=== PATIENT | female | born 1965 | race Caucasian/White ===

== ENCOUNTER 2024-04-09 09:41 | Emergency (ER) | payer OTHER, SELFPAY ==
[2024-04-09] VITALS (23 sets, daily range): BP systolic 101–149; BP diastolic 55–130; PULSE 63–91; RESP 12–20; TEMP 36.7–36.8; O2SAT 96–100
--- NOTE | ~2024-04-09 | XR_ITS ---
EXAMINATION: XR chest 2V DATE: 04/09/2024 10:22 INDICATION: Drug overdose. TECHNIQUE: Frontal and lateral views of the chest were obtained. COMPARISON: Chest view 09/06/2017 FINDINGS: There are lucencies in the lungs, consistent with emphysema. Calcified bilateral lung nodul es and calcified hilar and mediastinal lymph nodes are consistent with old granulomatous disease. No pleural effusion or pneumothorax. The heart size is normal. IMPRESSION: 1. Emphysema. Reviewed, dictated and finalized at location A. R NURSE IMPRESSION: 1. Emphysema.
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
--- NOTE | 2024-04-09 09:51 | ECG_ITS ---
Test Date: 2024-04-09 10:06:31 Measurements Intervals [place] Rate: 89 P: 67 VT: 181 QRS: 79 QRSD: 102 T: 69 QT: 318 QTc: 388 Interpretive Statements SINUS RHYTHM ST DEVIATION AND MODERATE T-WAVE ABNORMALITY IN ANTEROLATERAL LEADS, CONSIDER ISCHEMIA BASELINE ARTIFACT- I, II, III, AVR, AVL, AVF, V1-V2, V4-V5 ABNORMAL ECG No previous ECG available for comparison Electronically Signed On 04-09-2024 10:24:00 GASTROENTEROLOGY NURSE by Virgil Franks D.O.
[2024-04-09 10:18] LABS: Basophils Absolute Auto 0.04 K/mm3 (0.00-0.10); Basophils Percent Auto 0.4 % (0.0-1.0); Hematocrit 44.3 % (35.0-49.0); Hemoglobin 14.5 g/dL (12.0-15.0); Immature Granulocyte Absolute 0.02 K/mm3 (0.00-0.00); Immature Granulocyte Percent A 0.2 % (0.0-0.0); Lymphocytes Absolute Auto 2.53 K/mm3 (1.10-4.50); Lymphocytes Percent Auto 25.7 % (18.0-42.0); Mean Corpuscular HGB Conc 32.7 g/dL (32-36); Mean Corpuscular Hemoglobin 29.5 pg (27.0-31.0); Mean Platelet Volume 10.3 fl (9.2-11.8); Monocytes Absolute Auto 0.63 K/mm3 (0.10-0.90); Monocytes Percent Auto 6.4 % (2.0-11.0); Neutrophils Absolute Auto 6.41 K/mm3 (1.70-7.20); Neutrophils Percent Auto 65.3 % (50.0-70.0); Platelet Count Result 267 K/mm3 (150-420); Red Blood Count 4.92 M/mm3 (4.20-5.40); Red Cell Distribution Width 12.7 % (11.6-14.4); White Blood Count 9.8 K/mm3 (4.8-10.8)
[2024-04-09 10:19] LABS: Add Urine Microscopic? YES; Appearance Urine Clear (Clear); Bilirubin Urine Negative (Negative); Blood Urine Negative (Negative); Color Urine Yellow (Yellow); Glucose Urine UA Negative (Negative); Ketones Urine Negative (Negative); Leukocyte Esterase Ur 1+ LEU/UL (Negative); Nitrate Urine Positive (Negative); Protein Urine Negative (Negative); Specific Grav Ur 1.025 (1.010-1.020)
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
[2024-04-09 10:25] LABS: Amphetamine Screen Urine Positive (Negative); Barbiturate Screen Urine Negative (Negative); Benzodiazepines Screen Urine Positive (Negative); Cannabinoid Screen Urine Negative (Negative); Cocaine Screen Urine Negative (Negative); Methadone Screen Urine Negative (Negative); Opiate Screen Urine Negative (Negative); Phencyclidine Screen Urine Negative (Negative)
--- NOTE | 2024-04-09 10:50 | PC.NURSE ---
UPDATED PC WITH EKG FINDINGS. PT IS TO BE OBSERVED FOR 6 HOURS, IF PT REMAINS ASYMPTOMATIC, SHE WILL BE MEDICALLY CLEARED AT THAT TIME. WILL CONTINUE TO MONITOR. SODA PROVIDED. WILL CONTINUE TO MONITOR.
[2024-04-09 10:55] LABS: Bacteria Urine Trace /hpf; RBC Urine None seen /hpf (0-2); Squamous Epithelial Cell Urine Few /hpf (Few); WBC Urine 0-3 /hpf (0-3)
[2024-04-09 11:00] LABS: Alanine Aminotransferase 40 U/L (14-59); Albumin Level 3.7 g/dL (3.4-5.0); Alkaline Phosphatase 125 U/L (46-116); Anion Gap 12 mmol/L (4-12); Aspartate Amino Transferase 15 U/L (15-37); Bilirubin,Total 0.2 mg/dL (0.00-1.00); Blood Urea Nitrogen 33 mg/dL (7-18); Calcium 8.6 mg/dL (8.5-10.1); Carbon Dioxide 29 mmol/L (21-32); Chloride 100 mmol/L (98-108); Estimated CRCL calculation 48 ml/min; Estimated Glomerular Filt Rate 58; Glucose 100 mg/dL (70-99); Osmolality Calculated 299 mOsm/kg (285-295); Potassium 2.7 mmol/L (3.5-5.1); Salicylate 1.5 mg/dL (2.8-20.0); Sodium 141 mmol/L (136-145); Thyroid Stimulating Hormone 3.03 uIU/mL (0.36-3.74); Total Protein 6.9 g/dL (6.4-8.2)
[2024-04-09 11:01] LABS: Acetaminophen < 2 ug/mL (10-30); Ethanol < 3 mg/dL (0-6)
[2024-04-09] MEDS: NITROFURANTOIN MONOHYD MACROCR 100 MG CAP PO (11:41)
[2024-04-09] MEDS: POTASSIUM CHLORIDE 20 MEQ PACKET (FOR LIQUID) 40 MEQ PO ×2 (11:41→15:45)
--- NOTE | 2024-04-09 12:03 | PC.NURSE ---
DIFFICULTY ESTABLISHING IV SITE AT THIS TIME. PT HAS BEEN PROVIDED LUNCH AND IS EATING. WILL ATTEMPT AFTER LUNCH.
[2024-04-09] MEDS: KCL 40 MEQ/D5/0.9% SOD CHL 1,000 ML 100 ML IV CONT (12:43)
[2024-04-09] MEDS: SODIUM CHLORIDE 0.9% IV 1,000 ML 999 ML IV CONT (12:44)
--- NOTE | 2024-04-09 12:53 | PC.NURSE ---
PT HAS COMPLETED LUNCH, IV SITE HAS BEEN ESTABLISHED. VSS PER MONITOR. PT IS CALM AND COOPERATIVE, IVF INFUSING ORDERED WITHOUT DIFFICULTY. PT IS AWAITING MEDICAL CLEARANCE FOR EVALUATION. PT CONTINUES TO DENY SI OR HI. WILL CONTINUE TO MONITOR.
--- NOTE | 2024-04-09 13:21 | PC.NURSE ---
SPOKE WITH TEMO FROM PC AT THIS TIME FOR STATUS UPDATE. NO CHANGE IN TX AT THIS TIME. PT IS CURRENTLY RESTING ON STRETCHER IN EXAM ROOM, AROUSES TO VERBAL STIMULI. NAD NOTED. VSS. WILL CONTINUE TO MONITOR.
--- NOTE | 2024-04-09 13:32 | PC.NURSE ---
AND DAUGHTER CALL TO CHECK PT STATUS AT THIS TIME, ADVISED I WOULD HAVE HER RETURN THE CALLS WHEN SHE WAKES. REPORTS HE DOES NOT WANT TO SPEAK WITH HER, WAS JUST WANTING TO KNOW IF PT WAS GOING TO BE RELEASED. DAUGHTER IS KETAN PAL [phone].
--- NOTE | 2024-04-09 14:35 | PC.NURSE ---
PT IS RESTING ON STRETCHER, NAD NOTED. VSS PER MONITOR. IV MEDICATIONS INFUSING WITHOUT DIFFICULTY. PT IS TO HAVE POTASSIUM RECHECKED POST COMPLETION OF INFUSION. RECHECK WILL DETERMINE MEDICAL CLEARANCE. WILL CONTINUE TO MONITOR.
--- NOTE | 2024-04-09 15:32 | PC.NURSE ---
NO CHANGE IN PT STATUS. WILL CONTINUE TO MONITOR.
--- NOTE | 2024-04-09 15:41 | PC.NURSE ---
PT HAD PLACED HER HANDS BEHIND HER HEAD WHILE SLEEPING, PULLING OUT HER IV. ERP IS AWARE. PT AMBULATORY TO WITHOUT DIFFICULTY, IS CURRENTLY SPEAKING WITH FAMILY ON THE PHONE. WILL CONTINUE TO MONITOR.
[2024-04-09 17:36] LABS: Potassium 4.6 mmol/L (3.5-5.1)
--- NOTE | 2024-04-09 18:03 | PC.NURSE ---
PT HAS BEEN MEDICALLY CLEARED, AND YULIANA WITH [facility] NOTIFIED FOR NEED OF EVALUATION. PT IS RESTING ON STRETCHER AWAITING DINNER TRAY AT THIS TIME. VSS. WILL CONTINUE TO MONITOR.
--- NOTE | 2024-04-09 18:54 | PC.NURSE ---
[facility]RA CORNELL IS AT BEDSIDE AT THIS TIME.
--- NOTE | 2024-04-09 21:15 | PC.NURSE ---
ERP aware of pt's blood pressure. No new orders. Pt instructed to follow up with PCP.
--- NOTE | 2024-04-11 13:08 | PC.NURSE ---
FINAL URINE CULTURE RESULTS: MIXED GENITAL POOL NO CHANGE IN TX PER DR THORNE
== END 2024-04-09 21:15 | disposition home or self-care (01) ==
PROVIDERS: Emergency Provider Emergency Medicine
DX: F32.A Depression, unspecified (principal); R45.851 Suicidal ideations; E87.6 Hypokalemia; F17.200 Nicotine dependence, unspecified, uncomplicated
CPT/HCPCS: 36415; 71046; 80053; 80143; 80179; 80307; 81001; 82077; 84132; 84443; 85025; 87086; 87088; 93005; 96365; 96366; 99285; A9270; J3480; J7030

== ENCOUNTER 2024-06-09 07:12 | Emergency (ER) | payer MEDICARE, MEDICAID, SELFPAY ==
[2024-06-09] VITALS (11 sets, daily range): BP systolic 114–127; BP diastolic 55–75; PULSE 63–82; RESP 13–20; TEMP 36.8; O2SAT 95–100
--- NOTE | ~2024-06-09 | CT_ITS ---
CTA brain carotid Ordering provider: Jose Chambers DO History: . TIA, Headache/ facial numbness/ dizziness x1 week . Comparison: 10/09/2024 Technique: CT angiogram head and neck was performed following timed intravenous injection of contrast . Thin slice axial images and reformatted coronal images were obtained. Three dimensional reformatted images of the brain were also obtained using a [employer] workstation. Radiation reduction technique ut ilized.The dose-length product was 986.84 mGy-cm. 100 mL Omnipaque 350 was given IV. FINDINGS: HEAD: --ANTERIOR AND MIDDLE CEREBRAL ARTERIES AND BRANCHES: Normal caliber and contour. --INTERNAL CAROTID ARTERIES: Mild atheromatous disease but no significant stenosis. No occlusion. --BASILAR ARTERY AND BRANCHES: Normal caliber and contour. No atheromatous disease. --POSTERIOR CEREBRAL ARTERIES: Normal caliber and contour --POSTERIOR COMMUNICATING ARTERIES: Not visualized which is probably related to congenital absence or small size. --ANEURYSM: None visualized. --BRAIN: Please refer to report of CT head performed the same day. --BONES AND SUPERFICIAL SOFT TISSUES: Please refer to report of CT head performed the same day. --PARANASAL SINUSES AND MASTOIDS: Please refer to report of CT head done the same day. NECK: --RIGHT CERVICAL CAROTID SYSTEM: Normal caliber and contour. Percent stenosis per NASCET criteria is 0%. No carotid dissection. Otherwise, no significant atheromatous disease or stenosis of the cervica l carotid system. --LEFT CERVICAL CAROTID SYSTEM: Normal caliber and contour. Percent stenosis per NASCET criteria is 0%. No carotid dissection. Otherwise, no significant atheromatous disease or stenosis of the cervical carotid system. --VERTEBRAL ARTERIES: Normal caliber and contour. --VISUALIZED AORTIC ARCH AND BRANCHING VESSELS: Mild atheromatous disease but no significant stenosis . --SOFT TISSUES: Normal. --CERVICAL SPINE: Age appropriate degenerative changes. IMPRESSION: 1. Normal CTA head 2. CTA neck. Percent stenosis per NASCET criteria is 0%. Reviewed, dictated and finalized at location A.
--- NOTE | ~2024-06-09 | CT_ITS ---
CT brain wo con Ordering provider: Jose Chambers DO History: 59 years Female with . facial numbness/ headache/ dizziness/ difficulty speaking . Comparison: None. Technique: CT of the head without contrast. Radiation reduction technique utilized.The dose-length pr oduct was 605.33 mGy-cm. FINDINGS: BRAIN PARENCHYMA AND CSF SPACES: Mild leukoaraiosis and diffuse cortical atrophy. Mild atheromatous d isease. No midline shift, mass effect or hemorrhage. The brain parenchyma and CSF spaces are otherwi se normal. VISUALIZED PARANASAL SINUSES: Bilateral ethmoid sinus disease. Otherwise, Well aerated. MASTOIDS: Well aerated. BONES: The bones appear intact. SOFT TISSUES: Visualized nasopharynx is normal. Superficial soft tissues are normal. IMPRESSION: No acute intracranial findings. Reviewed, dictated and finalized at location A.
--- NOTE | 2024-06-09 07:14 | ECG_ITS ---
Test Date: 2024-06-09 07:20:59 Measurements Intervals [place] Rate: 76 P: 66 AL: 174 QRS: 70 QRSD: 98 T: 52 QT: 405 QTc: 455 Interpretive Statements SINUS RHYTHM BORDERLINE ST ABNORMALITY- ANTEROLATERAL LEADS BASELINE ARTIFACT- I, II, III, AVR, AVF, V1 BORDERLINE ECG Compared to ECG 04/09/2024 10:06:31 POSSIBLE ISCHEMIA NO LONGER PRESENT Electronically Signed On 06-09-2024 07:48:23 CDT by Virgil Franks D.O.
--- NOTE | 2024-06-09 07:17 | ED_ITS ---
HPI - General Adult General Chief complaint: Chest Pain Stated complaint: chest pain Time Seen by Provider: 06/09/24 07:13 History of Present Illness HPI narrative: Sharona is a 59F with a PMH of emphysema, seizures, depression and SI that presented to the ED with facial numbness and trouble finding her words that started early yesterday as well as some tingling in her arm. Yesterday, for a few hours she had some confusion, and weakness that lasted for several hours. She has had chest pressure for 2 weeks now but N/V or dyspnea. Related Data Home Medications ?Medication ?Instructions ?Recorded ?Confirmed ?Last Taken ?Type atenolol 25 mg tablet 25 mg PO DAILY 06/09/24 Unknown History clonazepam 1 mg tablet 1 mg PO BID 06/09/24 Unknown History gabapentin 800 mg tablet 800 mg PO QID 06/09/24 Unknown History hydrochlorothiazide 25 mg tablet 25 mg PO DAILY 06/09/24 Unknown History oxcarbazepine 300 mg tablet 600 mg PO TID 06/09/24 Unknown History Allergies Allergy/AdvReac Type Severity Reaction Status Date / Time No Known Allergies Allergy Unverified 06/09/24 08:01 Review of Systems 2 Review of Systems: All systems reviewed & are unremarkable except as noted in HPI and below PMFSH Family History Family History Father Diabetes mellitus Family history of coronary artery disease Family history of diabetes mellitus in first degree relative Family history of heart disease in male family member before age 55 Patient's father is Mother Hypertension Family history of malignant neoplasm of ovary Family history of chronic obstructive pulmonary disease Family history of heart disease in male family member before age 55 Grandparent Family history of coronary artery disease Family history of tuberculosis Social History Social History Smoking status: Current every day smoker Alcohol intake: never Substance use type: amphetamines Exam 2 Const: General: cooperative, healthy appearing, comfortable, no acute distress, well developed, alert, awake and Physically active O rientation/consciousness: oriented to person, oriented to place and oriented to time HENMT: Head: normal to inspection, normocephalic and atraumatic Ears: h earing grossly normal bilaterally and external ears normal Face/Nose/Sinus: N ormal external nose present Eyes: General: appearance normal, both eyes and all related structures P eriorbital: periorbital findings normal Sclera: sclerae normal Pupils: E qual, round and reactive pupils present Neck: Neck: normal visual inspection Chest: Chest palpation & inspection: normal inspection of the chest Resp: Effort & Inspection: normal respiratory effort, able to speak in complete sentences and no respiratory distress Auscultation: clear to auscultation bilaterally Cardio: Jugular venous distension: no JVD Rate: regular rate Rhythm: r egular rhythm GI: Inspection: normal to inspection GI Palp: Yes Soft to palpation A uscultation: normal bowel sounds Skin: General skin exam: normal color and no rashes or lesions noted Neuro: General: oriented to person, oriented to place and oriented to time Cranial nerves: Yes Equal, round and reactive pupils present Speech: normal speech Gait exam (Neuro): Normal gait present Other: CN II-XII intact as tested Extrem: General: normal to inspection Course Course Emergency Course: EKG showed NSR with a rate of 76, no ST elevation/depression CT brain wo con Ordering provider: Jose Chambers DO History: 59 years Female with . facial numbness/ headache/ dizziness/ difficulty speaking . Comparison: None. Technique: CT of the head without contrast. Radiation reduction technique utilized.The dose-length product was 605.33 mGy-cm. FINDINGS: BRAIN PARENCHYMA AND CSF SPACES: Mild leukoaraiosis and diffuse cortical atrophy. Mild atheromatous disease. No midline shift, mass effect or hemorrhage. The brain parenchyma and CSF spaces are otherwise normal. VISUALIZED PARANASAL SINUSES: Bilateral ethmoid sinus disease. Otherwise, Well aerated. MASTOIDS: Well aerated. BONES: The bones appear intact. SOFT TISSUES: Visualized nasopharynx is normal. Superficial soft tissues are normal. IMPRESSION: No acute intracranial findings. CTA brain carotid IMPRESSION: 1. Normal CTA head 2. CTA neck. Percent stenosis per NASCET criteria is 0%. Given normal labs EKG and CT scans the patient can discharge home. However, given the high risk of a TIA she was discharged on aspirin and plavix. Vital Signs Vital signs: Vital Signs Temperature 98.2 F 06/09/24 07:52 Pulse Rate 80 06/09/24 07:52 Respiratory Rate 18 06/09/24 07:52 Blood Pressure 127/75 06/09/24 07:52 Pulse Oximetry 99 06/09/24 07:52 Oxygen Delivery Room Air 06/09/24 07:52 Temperature 98.2 F 06/09/24 07:52 Pulse Rate 77 06/09/24 09:36 Respiratory Rate 18 06/09/24 07:52 Blood Pressure 127/75 06/09/24 07:52 Pulse Oximetry 99 06/09/24 07:52 Oxygen Delivery Room Air 06/09/24 07:52 Medical Decision Making Vital Signs Vital Signs: Vital Signs Temperature 98.2 F 06/09/24 07:52 Pulse Rate 80 06/09/24 07:52 Respiratory Rate 18 06/09/24 07:52 Blood Pressure 127/75 06/09/24 07:52 Pulse Oximetry 99 06/09/24 07:52 Oxygen Delivery Room Air 06/09/24 07:52 Temperature 98.2 F 06/09/24 07:52 Pulse Rate 77 06/09/24 09:36 Respiratory Rate 18 06/09/24 07:52 Blood Pressure 127/ 06/09/24 07:52 Pulse Oximetry 99 06/09/24 07:52 Oxygen Delivery Room Air 06/09/24 07:52 Lab Data 06/09/24 07:45 06/09/24 07:45 Labs: Lab Results 06/09/24 Range/Units 07:45 WBC 7.0 (4.8-10.8) K/mm3 RBC 4.37 (4.20-5.40) M/mm3 Hgb 12.9 (12.0-15.0) g/dL Hct 40.7 (35.0-49.0) % MCV 93.1 (78.0-102.0) fL MCH 29.5 (27.0-31.0) pg MCHC 31.7 L (32-36) g/dL RDW 13.1 (11.6-14.4) % Plt Count 253 (150-420) K/mm3 MPV 10.5 (9.2-11.8) fl Immature Gran % (Auto) 0.3 H (0.0-0.0) % Neut % (Auto) 53.7 (50.0-70.0) % Lymph % (Auto) 33.9 (18.0-42.0) % [place] % (Auto) 8.0 (2.0-11.0) % Eos % (Auto) 3.2 (1.0-6.0) % Baso % (Auto) 0.9 (0.0-1.0) % Lymph # (Auto) 2.36 (1.10-4.50) K/mm3 [place] # (Auto) 0.56 (0.10-0.90) K/mm3 Eos # (Auto) 0.22 (0.02-0.50) K/mm3 Baso # (Auto) 0.06 (0.00-0.10) K/mm3 Abs Immat Gran (auto) 0.02 H (0.00-0.00) K/mm3 Absolute Neuts (auto) 3.74 (1.70-7.20) K/mm3 Absolute Nucleated RBC 0.00 (0.00-0.00) K/mm3 Nucleated RBC % 0.0 (0-0.0) % PT 9.7 (9.50-12.1) Seconds INR 0.9 Sodium 142 (136-145) mmol/L Potassium 3.6 (3.5-5.1) mmol/L Chloride 104 (98-108) mmol/L Carbon Dioxide 30 (21-32) mmol/L Anion Gap 8 (4-12) mmol/L BUN 22 H (7-18) mg/dL Creatinine 0.97 (0.55-1.02) mg/dL Estim Creat Clear Calc 50 ml/min Estimated GFR 58 L (59 - ) Glucose 87 (70-99) mg/dL Calculated Osmolality 296 H (285-295) mOsm/kg Calcium 8.8 (8.5-10.1) mg/dL Magnesium 2.0 (1.8-2.4) mg/dL Total Bilirubin 0.2 (0.00-1.00) mg/dL AST 37 (15-37) U/L ALT 52 (14-59) U/L Alkaline Phosphatase 157 H (46-116) U/L Troponin I 5.9 (0.00-60.4) ng/L Total Protein 6.9 (6.4-8.2) g/dL Albumin 3.3 L (3.4-5.0) g/dL Urine Opiates Screen Negative (Negative) Urine Methadone Screen Negative (Negative) Ur Barbiturates Screen Negative (Negative) Ur Phencyclidine Scrn Negative (Negative) Ur Amphetamine Screen Negative (Negative) U Benzodiazepines Scrn Negative (Negative) Urine Cocaine Screen Negative (Negative) U Cannabinoids Screen Negative (Negative) Ethyl Alcohol < 3 (0-6) mg/dL Discharge Plan Discharge Clinical Impression: Brain TIA Patient Disposition: Home Condition: Stable Instructions: Transient Ischemic Attack (ED) Patient Language: Citizen Of [place] Prescriptions: New aspirin 81 mg capsule 81 mg PO DAILY Qty: 7 0RF clopidogrel 75 mg tablet 75 mg PO DAILY Qty: 7 0RF No Action clonazepam 1 mg tablet 1 mg PO BID atenolol 25 mg tablet 25 mg PO DAILY oxcarbazepine 300 mg tablet 600 mg PO TID gabapentin 800 mg tablet 800 mg PO QID hydrochlorothiazide 25 mg tablet 25 mg PO DAILY Follow-up/Referrals: UNKNOWN,DOCTOR [Non-Staff] -
[2024-06-09 07:58] LABS: Basophils Absolute Auto 0.06 K/mm3 (0.00-0.10); Basophils Percent Auto 0.9 % (0.0-1.0); Eosinophils Absolute Auto 0.22 K/mm3 (0.02-0.50); Eosinophils Percent Auto 3.2 % (1.0-6.0); Hematocrit 40.7 % (35.0-49.0); Hemoglobin 12.9 g/dL (12.0-15.0); Immature Granulocyte Absolute 0.02 K/mm3 (0.00-0.00); Immature Granulocyte Percent A 0.3 % (0.0-0.0); Lymphocytes Absolute Auto 2.36 K/mm3 (1.10-4.50); Lymphocytes Percent Auto 33.9 % (18.0-42.0); Mean Corpuscular HGB Conc 31.7 g/dL (32-36); Mean Corpuscular Hemoglobin 29.5 pg (27.0-31.0); Mean Corpuscular Volume 93.1 fL (78.0-102.0); Mean Platelet Volume 10.5 fl (9.2-11.8); Monocytes Absolute Auto 0.56 K/mm3 (0.10-0.90); Neutrophils Absolute Auto 3.74 K/mm3 (1.70-7.20); Neutrophils Percent Auto 53.7 % (50.0-70.0); Platelet Count Result 253 K/mm3 (150-420); Red Blood Count 4.37 M/mm3 (4.20-5.40); Red Cell Distribution Width 13.1 % (11.6-14.4)
[2024-06-09 08:13] LABS: Alanine Aminotransferase 52 U/L (14-59); Albumin Level 3.3 g/dL (3.4-5.0); Alkaline Phosphatase 157 U/L (46-116); Anion Gap 8 mmol/L (4-12); Aspartate Amino Transferase 37 U/L (15-37); Bilirubin,Total 0.2 mg/dL (0.00-1.00); Blood Urea Nitrogen 22 mg/dL (7-18); Calcium 8.8 mg/dL (8.5-10.1); Carbon Dioxide 30 mmol/L (21-32); Chloride 104 mmol/L (98-108); Estimated CRCL calculation 50 ml/min; Estimated Glomerular Filt Rate 58; Ethanol < 3 mg/dL (0-6); Glucose 87 mg/dL (70-99); Osmolality Calculated 296 mOsm/kg (285-295); Potassium 3.6 mmol/L (3.5-5.1); Sodium 142 mmol/L (136-145); Total Protein 6.9 g/dL (6.4-8.2); Troponin I 5.9 ng/L (0.00-60.4)
[2024-06-09 08:15] LABS: Amphetamine Screen Urine Negative (Negative); Barbiturate Screen Urine Negative (Negative); Benzodiazepines Screen Urine Negative (Negative); Cannabinoid Screen Urine Negative (Negative); Cocaine Screen Urine Negative (Negative); INR 0.9; Methadone Screen Urine Negative (Negative); Opiate Screen Urine Negative (Negative); Phencyclidine Screen Urine Negative (Negative); Prothrombin Time 9.7 Seconds (9.50-12.1)
--- NOTE | 2024-06-09 08:31 | PC.NURSE ---
On 06/09/24, the student, [macho siu ], provided care and completed [facility] documentation on this patient. I have reviewed the student's documentation and agree with the findings.
[2024-06-09] MEDS: ASPIRIN 81 MG CHEWABLE TABLET 324 MG PO (09:48)
[2024-06-09] MEDS: CLOPIDOGREL BISULFATE 75 MG TABLET 300 MG PO (09:49)
== END 2024-06-09 10:00 | disposition home or self-care (01) ==
PROVIDERS: Emergency Provider Family Medicine
DX: G45.9 Transient cerebral ischemic attack, unspecified (principal); J43.9 Emphysema, unspecified; F17.200 Nicotine dependence, unspecified, uncomplicated; Z79.899 Other long term (current) drug therapy
CPT/HCPCS: 36415; 70450; 70496; 70498; 80053; 80307; 82077; 83735; 84484; 85025; 85610; 93005; 99284; A9270; Q9967